=== PATIENT | male | born 1970 | race American Indian/Alaskan Native ===

== ENCOUNTER 2019-11-24 11:22 | Day surgery (SDC) | payer MEDICAID ==
[2019-11-24] MEDS ORDERED: SODIUM CHLORIDE 0.9% 250ML 250 ML ONE (12:00)
[2019-11-24] MEDS ORDERED: HEPARIN/NS 5000 UNIT/500ML 1,000 ML IR ONE (12:00)
[2019-11-24] MEDS ORDERED: HEPARIN 10,000 UNITS/10 ML VIAL ONE (12:00)
[2019-11-24 12:12] LABS: Hematocrit 38.6 % (35.5-45.6); Hemoglobin 13.1 gm/dl (11.8-15.2); Mean Corpuscular HGB Conc 34 % (32-34); Mean Corpuscular Volume 94 fl (84-94); Platelet Count 162 K/mm3 (140-440); Red Blood Count 4.11 M/mm3 (3.65-5.03); Red Cell Distribution Width 14.9 % (13.2-15.2)
[2019-11-24] MEDS ORDERED: ceFAZolin/Water 2 GM/20 ML 2 GM/20 ML SYRINGE IV ONE (12:19)
[2019-11-24] MEDS: fentaNYL 100 MCG/2 ML INJ ONE ×2 (12:38→12:48)
[2019-11-24] MEDS: MIDAZOLAM 2 MG/2 ML INJ ONE ×2 (12:38→12:48)
[2019-11-24 12:40] LABS: Calcium 9.4 mg/dL (8.4-10.2)
[2019-11-24] MEDS: LIDOCAINE 1%/EPINEPHRINE 1:100,000 VIAL (20 ML) INFILTRATI ONE ×2 (12:42→13:14)
[2019-11-24] MEDS ORDERED: fentaNYL 100 MCG/2 ML INJ ONE (12:58)
[2019-11-24] MEDS ORDERED: MIDAZOLAM 2 MG/2 ML INJ ONE (12:58)
--- NOTE | 2019-11-24 13:37 | Short Stay Summary ---
Short Stay Documentation Date of service: 11/24/19 Narrative H&P: HPI: 49yo male with ESRD on HD via malfunctioning left arm AV graft presents for fistulogram with possible intervention. Patient denies changesw since last seen in clinic. ROS: as per HPI otherwise negative PE: NAD, A&Ox3 RRR non-labored respirations left arm av graftwith palpable thrill Plan: left arm fistulogram Diagnostic venogram of the central venous system - History Past Medical History: diabetes, ESRD Social history: no significant social history - Allergies and Medications Current Medications: Allergies No Known Allergies Allergy (Verified 06/05/15 12:10) - Physical exam General appearance: no acute distress HEENT: Atraumatic Lungs: Normal air movement Heart: Regular rate, Normal S1, Normal S2 Extremities: no ischemia, No edema - Brief post op/procedure progress note Date of procedure: 11/24/19 Pre-op diagnosis: ESRD Post-op diagnosis: same Procedure: Left arm diagnostic fistulogram Ultrasound access of right femoral vein Diagnostic venogram of central venous system Monitored conscious sedation for 30 minutes Anesthesia: MAC, local Findings: patent left arm av graft with 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 please refer to the operative note concerning details of the procedure. the patient tolerated the procedure well and was discharged home in stable condition. - Disposition Condition at discharge: Stable Disposition: DC-01 TO HOME OR SELFCARE - Discharge Diagnoses (1) ESRD (end stage renal disease) on dialysis Status: Acute Short Stay Discharge Plan Follow up with: ANT BIANCHI MD [Primary Care Provider] - 7 Days
--- NOTE | 2019-11-24 14:14 | Operative Report ---
PREOPERATIVE DIAGNOSIS: End-stage renal disease. POSTOPERATIVE DIAGNOSIS: End-stage renal disease. PROCEDURE PERFORMED: 1. Left arm diagnostic fistulogram. 2. Ultrasound access of right femoral vein. 3. Diagnostic venogram of the central venous system. 4. Monitor conscious sedation for 30 minutes. COMPLICATIONS: None. ESTIMATED BLOOD LOSS: Less than 10 mL. ANESTHESIA: Local MAC. 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 The proximal to mid subclavian vein was diffusely atretic. The left and right innominate veins and the superior vena cava were all widely patent. INDICATIONS FOR PROCEDURE: This is a 49-year-old gentleman with a left arm AV graft, whose access is malfunctioning while on dialysis and therefore vascular consultation was obtained for evaluation and possible intervention. The patient recently had a fistulogram with intervention performed, which the venous anastomosis was angioplastied, but doing that intervention was unable to determine this patient's central venous anatomy and therefore it was felt that the patient would benefit from in-hospital attempt to address the patient's central venous occlusion. The patient was explained the risks, benefits and alternatives of procedure, expressed understanding and wished to proceed. DESCRIPTION OF PROCEDURE: After appropriate consent was obtained, the patient was brought back to the medical lab technician, placed on table in supine position with the left arm extended. The left arm and right groin were prepped and draped in usual sterile fashion with ChloraPrep. Appropriate timeout was performed indicating the correct patient, procedure, and site of procedure. We then began the intervention by obtaining percutaneous access of the right femoral vein using micropuncture technique under ultrasound guidance, this obtained access, needle was exchanged for micropuncture sheath using Seldinger technique and then this was upsized to a 5-Palauan sheath. We then proceeded to advance a vertebral catheter and Bentson wire into the central venous system. A diagnostic venogram was then performed through the vertebral catheter, which demonstrated a patent SVC. Then, 5-Palauan sheath was then exchanged over a long Bentson wire to a 6-Palauan x 90 sheath. The patient was given 5000 units of unfractionated heparin. After appropriate time had elapsed, we then proceeded to a combination of a vertebral catheter and a V-18 wire, advanced the wire and catheter through the innominate into the subclavian vein. At this point, a diagnostic venogram was performed through the vertebral catheter which demonstrated the findings noted above. At that point, we then proceeded to obtain access of the AV graft in the left upper arm using a micropuncture technique. This obtained access, needle was exchanged for micropuncture sheath and eventually upsized to a 6-Palauan sheath. A series of diagnostic imaging through the left upper extremity was performed, which demonstrated the findings noted above. On review of the patient's anatomy, it was felt that after multiple attempts of trying to cross the occluded lesion from below with the V18 wire and this being unsuccessful, that the patient would be better suited by undergoing a new access in the right arm and utilizing his current left arm access as long as possible until the second access properly matures. With that, we removed all our wires and sheath and digital compression was held at each access site for hemostasis. Once we were satisfied with hemostasis, appropriate dressing was placed. The patient tolerated the procedure well, emerged from the conscious sedation and was sent to recovery in stable condition. JOB# [id number] CAMPOS/HENRRY READ
[2019-11-24 16:03] VITALS: BP 153/76
== END 2019-11-24 16:39 | disposition home or self-care (01) ==
LOC: CATHLABREC 11:22
PROVIDERS: ATTEND Surgery Vascular Surgery
DX: I12.0 Hypertensive chronic kidney disease with stage 5 chronic kidney disease or end stage renal disease (principal); N18.6 End stage renal disease
CPT/HCPCS: 36012; 36415; 36901; 75827; 80048; 85027; 99156; 99157; C1769; C1887; C1894; J0690; J1644; J2250; J3010; J7050; Q9967